=== PATIENT | male | born 2000 | race Two or more races ===

== ENCOUNTER 2023-05-29 07:07 | Emergency (ER) | payer SELFPAY ==
[~2023-05-29] VITALS: Ht 172.7 cm; Wt 71.3 kg
[2023-05-29 08:16] VITALS: BP 154/76; PULSE 73; RESP 73; TEMP 98.3; O2SAT 98
[2023-05-29] MEDS ORDERED: IBUP1TAB5 PO (09:30)
== END 2023-05-29 09:45 | disposition home or self-care (01) ==
LOC: ER 07:07 → EDSEX 07:07 → ER 09:37
DX: S62.397A Other fracture of fifth metacarpal bone, left hand, initial encounter for closed fracture (principal); Z79.899 Other long term (current) drug therapy; W22.8XXA Striking against or struck by other objects, initial encounter; Y93.89 Activity, other specified; Y92.89 Other specified places as the place of occurrence of the external cause; Y99.8 Other external cause status
CPT/HCPCS: 29125; 73130